=== PATIENT | male | born 1935 | race Caucasian/White ===

== ENCOUNTER 2019-02-04 08:36 | Day surgery (SDC) | payer OTHER ==
[2019-02-03 10:20] VITALS: BMI 32.0
[2019-02-04 12:22] VITALS: TEMP 97.8
[2019-02-04 13:58] VITALS: BP 117/57; PULSE 59
--- NOTE | 2019-02-09 16:30 | PATH ---
Surgical Pathology Report Patient Name: APRIL BEAN [facility]. Rec. #: [id number] /Age/Gender: 1935 (Age: 83) / M Account: [id number] Location: A[facility]-ENDOSCOPY Taken: 02/04/2019 Received: 02/04/2019 Reported: 02/09/2019 Physicians: Davis Hamilton D.O. Specimen(s) Received A: IC VALVE POLYP B: RIGHT COLON POLYP C: PROXIMAL TRANVERSE COLON POLYP X 2 Clinical History Screening malignant neoplasm. Postoperative diagnosis: Colon, polyps, diverticulosis, hemorrhoid Final Diagnosis A. IC VALVE, POLYP, BIOPSY: TUBULAR ADENOMA. B. COLON, RIGHT, POLYP, BIOPSY: POLYPOID COLONIC MUCOSA WITH PROMINENT LYMPHOID AGGREGATE. C. PROXIMAL TRANSVERSE COLON, POLYP, BIOPSY: TUBULAR ADENOMA(S). Electronically Signed Rebekah Akhtar M.D. Gross Description A. Received in formalin, labeled "IC valve " is a montez, irregular portion of soft tissue measuring 0.2 cm. in greatest dimension. The specimen is submitted in toto in one cassette. B. Received in formalin, labeled "Rt colon, polyp" is a montez, irregular portion of soft tissue measuring 0.2 cm. in greatest dimension. The specimen is submitted in toto in one cassette. C. Received in formalin, labeled "proximal transverse colon, polyp x 2" are 2 montez, irregular portions of soft tissue each measuring 0.2 cm. in greatest dimension. The specimens are submitted in toto in one cassette. AE/02/04/2019 ebram/02/04/2019
== END 2019-02-04 13:07 | disposition home or self-care (01) ==
LOC: JASU-ENDO 08:36
PROVIDERS: ATTEND Internal Medicine Gastroenterology
PROC: 0DBL8ZX Excision of Transverse Colon, Via Natural or Artificial Opening Endoscopic, Diagnostic (ICD-10-PCS; 2019-02-04)
PROC: 0DBC8ZX Excision of Ileocecal Valve, Via Natural or Artificial Opening Endoscopic, Diagnostic (ICD-10-PCS; 2019-02-04)
PROC: 0DBK8ZX Excision of Ascending Colon, Via Natural or Artificial Opening Endoscopic, Diagnostic (ICD-10-PCS; principal; 2019-02-04 10:45)
DX: Z12.11 Encounter for screening for malignant neoplasm of colon (principal); D12.0 Benign neoplasm of cecum; D12.2 Benign neoplasm of ascending colon; D12.3 Benign neoplasm of transverse colon; K57.30 Diverticulosis of large intestine without perforation or abscess without bleeding; E11.22 Type 2 diabetes mellitus with diabetic chronic kidney disease; I12.9 Hypertensive chronic kidney disease with stage 1 through stage 4 chronic kidney disease, or unspecified chronic kidney disease; N18.3 Chronic kidney disease, stage 3 (moderate)
CPT/HCPCS: 88305-TC

== ENCOUNTER 2022-05-18 14:56 | Observation (INO) | payer OTHER ==
[2022-05-18 15:26] VITALS: BMI 25.4
[2022-05-18] MEDS ORDERED: ACETAMINOPHEN 500 MG TABLET (FP) PO ONE (16:24)
[2022-05-18] MEDS ORDERED: LACTATED RINGERS SOLUTION 1000 ML INFUS.BAG IV ONE (16:48)
[2022-05-18] MEDS ORDERED: ACETAMINOPHEN 325 MG TABLET (FP) ONE (16:54)
[2022-05-18 16:56] LABS: BASO % 0.9 % (0-2.0); EOS % 1.2 % (0-4.5); HEMATOCRIT 34.6 % (35.4-49); HEMOGLOBIN 11.2 GM/dL (11.7-16.9); LYMPH % 17.2 % (8-40); MCH 25.7 pg (25.7-33.7); MCHC 32.3 g/dl (32.0-35.9); MEAN CELL VOLUME 79.5 fl (80-96); MONO % 6.5 % (3.8-10.2); NEUT % 74.2 % (42.8-82.8); PLATELET COUNT 236 10^3/uL (134-434); RBC 4.35 M/mm3 (4.00-5.60); RDW 15.8 % (11.9-15.9); WHITE BLOOD COUNT 6.3 K/mm3 (4.0-10.0)
[2022-05-18 17:05] LABS: INR 1.15 (0.83-1.09); PROTHROMBIN TIME (PATIENT) 13.2 SEC (9.7-13.0)
[2022-05-18 17:22] LABS: CALCIUM 8.7 mg/dL (8.5-10.1)
[2022-05-18 17:24] LABS: ALBUMIN 3.6 g/dl (3.4-5.0); MAGNESIUM 1.3 mg/dL (1.8-2.4)
[2022-05-18 17:26] LABS: CREATININE 1.2 mg/dL (0.55-1.3)
[2022-05-18 17:27] LABS: BILIRUBIN,TOTAL 0.3 mg/dL (0.2-1); TOT PROT 6.9 g/dl (6.4-8.2)
[2022-05-18] MEDS ORDERED: MAGNESIUM SULF 50% (8.12 MEQ/2 ML-1 GM VIAL) IVPB ONE (17:28)
[2022-05-18 17:31] LABS: N-TERMINAL BNP 302.5 pg/ml (5-450)
[2022-05-18] MEDS ORDERED: MAGNESIUM SULFATE IN WATER 2 GM/50 ML IVPB IVPB ONE (17:46)
[2022-05-18 18:12] LABS: PH,URINE 5.5 (5.0-8.0); URINE APPEARANCE CLEAR; URINE BILIRUBIN NEGATIVE (NEGATIVE); URINE COLOR YELLOW; URINE GLUCOSE (UA) NEGATIVE (NEGATIVE); URINE KETONE NEGATIVE (NEGATIVE); URINE LEUK ESTERASE NEGATIVE (NEGATIVE); URINE NITRITE NEGATIVE (NEGATIVE); URINE PROTEIN NEGATIVE (NEGATIVE); URINE UROBILINOGEN 0.2 mg/dL (0.2-1.0)
[2022-05-18] MEDS ORDERED: ACETAMINOPHEN 325 MG TABLET (FP) PO PRN (20:58)
[2022-05-18] MEDS ORDERED: MELATONIN 5 MG TABLETS PO PRN (20:59)
[2022-05-18] MEDS ORDERED: ONDANSETRON 4 MG/2 ML VIAL IVPUSH PRN (21:00)
[2022-05-18] MEDS: ATORVASTATIN CA 40 MG TABLET (FP) PO SCH (22:45)
[2022-05-18] MEDS: CARVEDILOL 12.5 MG TABLET (FP) PO SCH (22:45)
[2022-05-18] MEDS: INSULIN SLIDING SCALE (NOVOLOG) 1 VIAL SQ SCH (22:50)
[2022-05-19] MEDS: INSULIN SLIDING SCALE (NOVOLOG) 1 VIAL SQ SCH ×4 (06:39→21:24)
[2022-05-19 07:49] LABS: HEMATOCRIT 31.5 % (35.4-49); HEMOGLOBIN 10.2 GM/dL (11.7-16.9); MCH 25.6 pg (25.7-33.7); MCHC 32.4 g/dl (32.0-35.9); MEAN PLT VOLUME 9.6 fl (7.5-11.1); PLATELET COUNT 212 10^3/uL (134-434); RBC 3.99 M/mm3 (4.00-5.60); RDW 15.7 % (11.9-15.9); WHITE BLOOD COUNT 5.3 K/mm3 (4.0-10.0)
[2022-05-19 08:19] LABS: BLOOD UREA NITROGEN 14.1 mg/dL (7-18); CALCIUM 8.9 mg/dL (8.5-10.1); MAGNESIUM 1.7 mg/dL (1.8-2.4)
[2022-05-19 08:20] LABS: PHOSPHOROUS 3.7 mg/dL (2.5-4.9)
[2022-05-19] MEDS ORDERED: MAGNESIUM 1GM/D5W - 1 GM/100 ML IVPB IVPB ONE (08:32)
[2022-05-19 08:42] LABS: RETICULOCYTES 1.21 % (0.5-1.5)
[2022-05-19] MEDS: TAMSULOSIN HCL 0.4 MG CAP PO SCH (09:50)
[2022-05-19] MEDS: amLODIPine BESYLATE 10 MG TABLET (FP) PO SCH (09:50)
[2022-05-19] MEDS: LISINOPRIL 20 MG TABLET PO SCH (09:50)
[2022-05-19] MEDS: CARVEDILOL 12.5 MG TABLET (FP) PO SCH ×2 (09:50→21:21)
[2022-05-19] MEDS: ASPIRIN COATED 81 MG TABLET.EC PO SCH (09:50)
[2022-05-19] MEDS: ATORVASTATIN CA 40 MG TABLET (FP) PO SCH (21:21)
[2022-05-20] MEDS: INSULIN SLIDING SCALE (NOVOLOG) 1 VIAL SQ SCH ×4 (06:31→21:46)
[2022-05-20 07:48] LABS: BASO % 0.6 % (0-2.0); EOS % 0.9 % (0-4.5); HEMATOCRIT 34.8 % (35.4-49); HEMOGLOBIN 11.3 GM/dL (11.7-16.9); LYMPH % 19.8 % (8-40); MCH 25.6 pg (25.7-33.7); MCHC 32.5 g/dl (32.0-35.9); MEAN CELL VOLUME 78.6 fl (80-96); MEAN PLT VOLUME 9.7 fl (7.5-11.1); NEUT % 71.7 % (42.8-82.8); PLATELET COUNT 219 10^3/uL (134-434); RBC 4.43 M/mm3 (4.00-5.60); WHITE BLOOD COUNT 7.1 K/mm3 (4.0-10.0)
[2022-05-20 08:15] LABS: CALCIUM 8.8 mg/dL (8.5-10.1)
[2022-05-20 08:16] LABS: BLOOD UREA NITROGEN 12.8 mg/dL (7-18); MAGNESIUM 1.5 mg/dL (1.8-2.4)
[2022-05-20] MEDS: LISINOPRIL 20 MG TABLET PO SCH (09:55)
[2022-05-20] MEDS: amLODIPine BESYLATE 10 MG TABLET (FP) PO SCH (09:55)
[2022-05-20] MEDS: CARVEDILOL 12.5 MG TABLET (FP) PO SCH (09:55)
[2022-05-20] MEDS: ASPIRIN COATED 81 MG TABLET.EC PO SCH (09:55)
[2022-05-20] MEDS: TAMSULOSIN HCL 0.4 MG CAP PO SCH (09:55)
[2022-05-20] MEDS: HEPARIN NA (PORCINE) 5,000 UNITS/ML 1ML VIAL SQ SCH (21:45)
[2022-05-20] MEDS: ATORVASTATIN CA 40 MG TABLET (FP) PO SCH (21:45)
[2022-05-21 01:22] VITALS: RESP 18
[2022-05-21] MEDS: HEPARIN NA (PORCINE) 5,000 UNITS/ML 1ML VIAL SQ SCH ×2 (06:24→13:14)
[2022-05-21] MEDS: INSULIN SLIDING SCALE (NOVOLOG) 1 VIAL SQ SCH ×3 (06:25→18:04)
[2022-05-21 08:03] LABS: BASO % 0.5 % (0-2.0); HEMATOCRIT 31.2 % (35.4-49); HEMOGLOBIN 10.4 GM/dL (11.7-16.9); MCH 26.1 pg (25.7-33.7); MCHC 33.4 g/dl (32.0-35.9); MEAN CELL VOLUME 78.2 fl (80-96); MEAN PLT VOLUME 9.3 fl (7.5-11.1); MONO % 11.4 % (3.8-10.2); NEUT % 56.1 % (42.8-82.8); PLATELET COUNT 201 10^3/uL (134-434); RBC 3.99 M/mm3 (4.00-5.60); RDW 15.6 % (11.9-15.9); WHITE BLOOD COUNT 5.8 K/mm3 (4.0-10.0)
[2022-05-21 08:35] LABS: ALBUMIN 3.1 g/dl (3.4-5.0); BLOOD UREA NITROGEN 19.9 mg/dL (7-18); CALCIUM 8.4 mg/dL (8.5-10.1)
[2022-05-21 08:38] LABS: CREATININE 1.1 mg/dL (0.55-1.3)
[2022-05-21 08:40] LABS: BILIRUBIN,TOTAL 0.4 mg/dL (0.2-1)
[2022-05-21] MEDS: ASPIRIN COATED 81 MG TABLET.EC PO SCH (12:11)
[2022-05-21] MEDS: amLODIPine BESYLATE 10 MG TABLET (FP) PO SCH (12:11)
[2022-05-21] MEDS: LISINOPRIL 20 MG TABLET PO SCH (12:11)
[2022-05-21] MEDS: TAMSULOSIN HCL 0.4 MG CAP PO SCH (12:11)
[2022-05-21 12:43] VITALS: BP 125/55; PULSE 57; TEMP 98
[2022-05-21] MEDS ORDERED: TETRAHYDROZOLINE HCL EYE DROPS OU PRN (15:19)
== END 2022-05-21 18:25 | disposition home or self-care (01) ==
LOC: JER 14:56 → JERBED 16:42 → J4W 22:17
PROVIDERS: ADMIT Internal Medicine; ATTEND Internal Medicine
PROC: 3E023GC Introduction of Other Therapeutic Substance into Muscle, Percutaneous Approach (ICD-10-PCS; principal; 2022-05-18)
PROC: 3E0337Z Introduction of Electrolytic and Water Balance Substance into Peripheral Vein, Percutaneous Approach (ICD-10-PCS; 2022-05-18)
DX: I25.10 Atherosclerotic heart disease of native coronary artery without angina pectoris (principal); I11.9 Hypertensive heart disease without heart failure; W18.39XA Other fall on same level, initial encounter; Y93.E1 Activity, personal bathing and showering; Y92.002 Bathroom of unspecified non-institutional (private) residence as the place of occurrence of the external cause; E78.5 Hyperlipidemia, unspecified; Z95.5 Presence of coronary angioplasty implant and graft; N40.0 Benign prostatic hyperplasia without lower urinary tract symptoms; M54.2 Cervicalgia; R55 Syncope and collapse; Z86.16 Personal history of COVID-19
CPT/HCPCS: 0241U-QW; 36415; 70450-TC; 71045-TC-FY; 72125-TC; 72170-TC-FY; 78452-TC; 80048; 80053; 80061; 81003; 82728; 82962; 83540; 83550; 83735; 83880; 84100; 84484; 85025; 85027; 85045; 85610; 85730; 87086; 93005; 93010; 93017; 93306-TC; 93880-TC; 96365; 96372; 96375; 97116-GP; 99285-25; A9502; G0378; J1644

== ENCOUNTER 2023-06-26 10:54 | Emergency (ER) | payer OTHER ==
[2023-06-26 11:19] VITALS: BMI 34.2
[2023-06-26 12:51] LABS: BASO % 0.4 % (0-2.0); EOS % 0.3 % (0-4.5); HEMATOCRIT 41.6 % (35.4-49); HEMOGLOBIN 13.7 GM/dL (11.7-16.9); LYMPH % 5.3 % (8-40); MCH 26.3 pg (25.7-33.7); MCHC 32.9 g/dl (32.0-35.9); MEAN PLT VOLUME 9.3 fl (7.5-11.1); MONO % 6.4 % (3.8-10.2); NEUT % 87.6 % (42.8-82.8); PLATELET COUNT 217 10^3/uL (134-434); RDW 16.5 % (11.9-15.9); WHITE BLOOD COUNT 10.8 K/mm3 (4.0-10.0)
[2023-06-26 12:55] LABS: POTASSIUM 4.3 mmol/L (3.5-5.1)
[2023-06-26 12:58] LABS: CALCIUM 8.5 mg/dL (8.5-10.1)
[2023-06-26 12:59] LABS: ALBUMIN 3.2 g/dl (3.4-5.0); MAGNESIUM 1.5 mg/dL (1.8-2.4)
[2023-06-26 13:01] LABS: CREATININE 1.1 mg/dL (0.55-1.3)
[2023-06-26 13:03] LABS: BILIRUBIN,TOTAL 0.4 mg/dL (0.2-1)
[2023-06-26] MEDS ORDERED: DOXYCYCLINE HYCLATE 100 MG CAPSULE PO ONE ×2 (13:47→13:56)
[2023-06-26] MEDS ORDERED: ACETAMINOPHEN 500 MG TABLET (FP) PO ONE (13:49)
[2023-06-26] MEDS ORDERED: ACETAMINOPHEN 325 MG TABLET (FP) ONE (13:56)
[2023-06-26 14:10] VITALS: BP 117/75; PULSE 83; RESP 19; TEMP 100.6
== END 2023-06-26 15:05 | disposition home or self-care (01) ==
LOC: JER 10:54
DX: R07.9 Chest pain, unspecified (principal); R05.9 Cough, unspecified; R06.02 Shortness of breath; J18.9 Pneumonia, unspecified organism; Z20.822 Contact with and (suspected) exposure to COVID-19
CPT/HCPCS: 0241U-QW; 36415; 71045-TC-FY; 80053; 83735; 83880; 84484; 85025; 93005; 93010; 99285-25

== ENCOUNTER 2024-10-27 19:26 | Emergency (ER) | payer OTHER ==
[2024-10-27 19:31] VITALS: TEMP 98.2; BMI 25.3
[2024-10-27 20:30] VITALS: RESP 18
[2024-10-27] MEDS ORDERED: ACETAMINOPHEN 325 MG TABLET (FP) ONE (21:24)
[2024-10-27] MEDS ORDERED: LIDOCAINE 4% PATCH TP ONE (21:30)
[2024-10-27] MEDS: LIDOCAINE 5% TOPICAL PATCH TP ONE (21:34)
[2024-10-27] MEDS: ACETAMINOPHEN 500 MG TABLET (FP) PO ONE (21:34)
[2024-10-27 21:36] LABS: ABSOLUTE IMMATURE GRANULOCYTES 0.06 x10^3/uL (0.0-0.031); BASOPHILS # 0.02 x10^3/uL (0.01-0.08); EOSINOPHIL % 0.4 % (0.8-7.0); EOSINOPHILS # 0.05 x10^3/uL (0.04-0.54); HEMATOCRIT 43.5 % (40.1-51.0); HEMOGLOBIN 14.2 g/dL (13.7-17.5); MCHC 32.6 g/dl (32.3-36.5); MEAN CELL VOLUME 84.8 fl (79.0-92.2); MEAN PLT VOLUME 10.7 fl (9.4-12.4); MONOCYTE # 0.75 x10^3/uL (0.30-0.82); MONOCYTE % 5.6 % (5.3-12.2); PLATELET COUNT 247 x10^3/uL (163-337); RDW 13.4 % (12.6-16.6)
[2024-10-27 21:38] LABS: URINE APPEARANCE CLEAR; URINE BILIRUBIN NEGATIVE (NEGATIVE); URINE COLOR YELLOW; URINE GLUCOSE (UA) NEGATIVE (NEGATIVE); URINE KETONE NEGATIVE (NEGATIVE); URINE LEUK ESTERASE NEGATIVE (NEGATIVE); URINE NITRITE NEGATIVE (NEGATIVE); URINE PROTEIN NEGATIVE (NEGATIVE)
[2024-10-27 21:52] LABS: POTASSIUM 4.3 mmol/L (3.5-5.1)
[2024-10-27 21:56] LABS: ALBUMIN 3.8 g/dl (3.4-5.0); CALCIUM 9.2 mg/dL (8.5-10.1)
[2024-10-27 21:57] LABS: BLOOD UREA NITROGEN 20.8 mg/dL (7-18); MAGNESIUM 1.3 mg/dL (1.8-2.4)
[2024-10-27 22:02] LABS: BILIRUBIN,TOTAL 0.4 mg/dL (0.2-1); TOT PROT 7.8 g/dl (6.4-8.2)
[2024-10-27] MEDS ORDERED: MAGNESIUM SULFATE IN WATER 2 GM/50 ML IVPB IVPB ONE (22:18)
[2024-10-27] MEDS: MAGNESIUM SULFATE IN WATER 2 GM/50 ML IVPB IVPB ONE (22:24)
[2024-10-27 22:37] VITALS: BP 154/74; PULSE 84
[2024-10-28] MEDS ORDERED: LIDOCAINE PATCH REMOVAL MC SCH (21:00)
== END 2024-10-27 23:21 | disposition home or self-care (01) ==
LOC: JER 19:26
PROC: 3E033GC Introduction of Other Therapeutic Substance into Peripheral Vein, Percutaneous Approach (ICD-10-PCS; principal; 2024-10-27)
DX: M79.671 Pain in right foot (principal); M25.551 Pain in right hip; M25.552 Pain in left hip; M79.644 Pain in right finger(s); R00.0 Tachycardia, unspecified; R42 Dizziness and giddiness; W18.30XA Fall on same level, unspecified, initial encounter
CPT/HCPCS: 36415; 71045-TC-FY; 73521-TC-FY; 73630-TC-RT-FY; 80053; 81003; 82962; 83735; 84439; 84443; 84484; 85025; 87086; 93005; 93010; 96365; 99285-25